=== PATIENT | female | born 2005 | race African-American/Black ===

== ENCOUNTER 2025-04-04 18:29 | Emergency (ER) | payer OTHER, SELFPAY ==
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
[2025-04-04 18:40] VITALS: BP 122/89; PULSE 87; RESP 18; TEMP 37; O2SAT 100
== END 2025-04-04 19:15 | disposition home or self-care (01) ==
PROVIDERS: Emergency Provider Nurse Practitioner Family
DX: R07.89 Other chest pain (principal); V43.62XA Car passenger injured in collision with other type car in traffic accident, initial encounter
CPT/HCPCS: 71100; 99203; G0463